=== PATIENT | male | born 1990 | race Caucasian/White ===

== ENCOUNTER → 2020-04-26 | Outpatient (CLI) | payer OTHER ==
[~2020-04-26] MED LIST: FENU500C PO; NAPR-514 PO; TEST200V3 IM; [UNRECOGNIZED DRUG - OTHER] PO
--- NOTE | 2020-04-26 11:37 | PDOC1 ---
INITIAL PAIN CONSULT DATE OF SERVICE: DOS: DATE: 04/26/20 TIME: 11:32 CHIEF COMPLAINT: Chief Complaint: Low back and right lower extremity pain HISTORY OF PRESENT ILLNESS: 29-year-old male presents history of pain for several years but worse over the past 1 month in the low back right lower extremity worse with standing walking changing positions patient ports bending is difficult he changes positions often at his place of employment patient reports the pain is doing slightly better with current physical therapy that he is doing has had 2 weeks so far but reports pain still significant in the low back rating the right lower extremity posterior gluteus posterior thigh posterior calf at times and it is much weaker than the left leg with significant fatigability. 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 Patient is currently undergoing physical therapy is also doing exercise on his own he is tried naproxen which decreased the pain only very minimally. Patient reports the pain wakes him sleep least 4 times a night side effects of bowel bladder control does affect his ability to walk and work significantly with his leg being weak on the right side. Patient have MRI scan of the lumbar spine showing disc desiccation at L4 and L5 with focal central left paracentral disc protrusion at each level worse at L5-S1 contacting the thecal sac and narrowing the left lateral recess with mild left foraminal stenosis. Patient reports no loss of motor function no bowel or bladder incontinence, but significant weakness right lower extremity with activity as noted. PAST MEDICAL HISTORY: PMH: No major medical conditions patient is been in relatively good health PREVIOUS SURGERIES: Past Surgical Hx: Scar tissue excision right ankle, wisdom teeth extraction, right ankle arthroscopy CURRENT MEDICATIONS: Current Meds: Active Scripts Medications Dose Route/Sig Max Daily Dose Days Date Category Fenugreek (Fenugreek Seed Extract) 500 Mg Capsule 750 Mg PO DAILY 04/26/20 Reported [tribulious] 750 Mg PO DAILY 04/26/20 Reported Testosterone Cypionate 200 Mg/1 Ml Vial 200 Mg IM WEEKLY 04/26/20 Reported Naproxen 500 Mg Tablet 1 Tab PO BID 30 04/26/20 Reported FAMILY HISTORY: Family Hx: Cancer, thyroid issues, degenerative joint disease SOCIAL HISTORY: Social Hx: Patient does not emili alcohol does not smoke not use any illegal illicit or recreational drugs is this with his spouse and works as a [employer] REVIEW OF SYSTEMS: ROS: Positive for those items mentioned in history of present illness, all systems are reviewed, otherwise negative, is complete full and well-documented on patient's chart PHYSICAL EXAM: VS: Blood pressure is 140/84 pulse 74 respiration 16 temperature is 90.0 F height is 5 foot 11 inches weight is 313 pounds PE: PHYSICAL EXAMINATION: GENERAL: The patient is awake, alert, oriented, appropriate, very pleasant demeanor HEENT: Shows normocephalic, atraumatic. Extraocular movements are intact and symmetrical. Oral cavity: Mucous membranes moist and pink. Dentition is intact. NECK: Shows anterior throat supple without palpable lymphadenopathy noted. Swallow reflex symmetrical. CHEST: Shows normal on inspection. Breath sounds are clear bilaterally, no rales rhonchi or wheezes. HEART: Shows S1, S2 clear. No murmurs auscultated. ABDOMEN: Soft, nontender, nondistended, obese. No palpable organomegaly is noted. No rebound or guarding demonstrated. BACK: Shows spine grossly in the midline. Normal-appearing cervical lordotic curvature. There is slightly increased thoracic kyphosis, some minor flattening of the lumbar lordotic curvature. Lumbar paraspinous muscles show symmetrical on inspection, on palpation shows some moderate tenderness diffusely throughout the upper, middle and lower distribution of the paraspinous muscles bilaterally and also into the lower thoracic paraspinous musculature, firm and tender, but without specific trigger points, without radiation of pain. The patient has go od rotational motion of the lumbar spine, both laterally as well as extension and flexion without significant difficulty. No tenderness over the spinous processes, sacrum or sacroiliac regions. EXTREMITIES: Lower extremities show deep tendon reflexes 2+ in the patellar and tendo calcaneus tendons. Motor exam is 4 on a scale of 5 with right dorsiflexion, extension, quadriceps and hamstring flexion and 5/5 on the left. Peripheral pulses are 1+ posterior tibial. No peripheral edema is noted bilaterally. Lower extremities are warm and dry to touch, equal in color and appearance. Straight leg raise noted to be positive on the right about 40 degrees, left side is negative. Gaenslen's and Marcos's maneuvers are negative as well. The patient is able to stand, stand on his toes without significant difficulty or loss of balance walks with a normal-appearing gait does not appear to favor the right or left lower extremity significantly not use any assistive device such as canes or walkers to ambulate. SKIN: Shows warm and dry, good turgor. No edema. No sores, rashes or bruising throughout. IMPRESSION: Impression: 29-year-old male with 1 month history increasing pain low back right lower extremity radicular fashion MRI scan lumbar spine as noted Plan: Options were discussed with the patient including continued physical therapies medical management and interventional techniques. He like to continue with physical therapy at this time we discussed possible interventional techniques including lumbar epidural steroid injection in the future if desired. We will try Medrol Dosepak as well patient was given instructions will side effects beware with the medication and after this is completed we will follow-up and potentially reschedule for lumbar epidural steroid injection. Patient continue with physical therapy exercises and continue physical therapy treatment s as scheduled as well. SONIYA PANCHAL MD Apr 26, 2020 11:37
== END | disposition home or self-care (01) ==
LOC: PNCL 09:19
PROVIDERS: ATTEND Anesthesiology
DX: M48.061 Spinal stenosis, lumbar region without neurogenic claudication (principal); M79.604 Pain in right leg; Z79.899 Other long term (current) drug therapy
CPT/HCPCS: G0463

== ENCOUNTER → 2020-05-04 | Outpatient (CLI) | payer OTHER ==
[~2020-05-04] MED LIST changes: +IOHEXOL 180 MG/ML 10 ML VIAL. ONE; +methylPREDNISolone ACETATE 40 MG/ML VIAL. ONE; +methylPREDNISolone ACETATE 80 MG/ML VIAL. ONE
--- NOTE | 2020-05-04 09:13 | PDOC ---
Progress Note - Pain Clinic Date of Service: DOS: DATE: 05/04/20 TIME: 09:10 Diagnosis: Dx: Lumbar radiculopathy with lumbar degenerative disc disease History or Present Illness: HPI: 29-year-old male returns follow-up status post initial evaluation and trial of Medrol Dosepak patient reports he was unable to try this as he did not get it filled. Patient ports pain is getting worse however in the low back and right lower extremity posterior gluteus posterior thigh posterior calf radiating becoming more sharp and aching patient reports is becoming more noticeable day-to-day interfering with his ability to walk doing household activities work activities patient reports the pain is a 9 on a scale of 10 is worse over the past week 7 on average 2 at its least and is a 3 today patient which is aching sharp tight shooting stabbing burning becoming more radiating more constant with walking standing patient ports wakes him from sleep about once every 6 hours especially sitting on his right side patient reports no new motor or sensory deficits no new bowel or bladder incontinence or other complaints. Physical Exam: VS: Blood pressure is 139/84 pulse 87 respirations 18 temperature is 98.6 F height is 5 foot 11 inches weight is 318 pounds PE: PHYSICAL EXAMINATION: GENERAL: The patient is awake, alert, oriented, appropriate, very pleasant demeanor HEENT: Shows normocephalic, atraumatic. Extraocular movements are intact and symmetrical. Oral cavity: Mucous membranes moist and pink. NECK: Shows anterior throat supple without palpable lymphadenopathy noted. Swallow reflex symmetrical. CHEST: Shows normal on inspection. Breath sounds are clear bilaterally, no rales rhonchi or wheezes. HEART: Shows S1, S2 clear. No murmurs auscultated. ABDOMEN: Soft, nontender, nondistended. No palpable organomegaly is noted. No rebound or guarding demonstrated. BACK: Shows spine grossly in the midline. Normal-appearing cervical lordotic curvature. There is slightly increased thoracic kyphosis, some minor flattening of the lumbar lordotic curvature. Lumbar paraspinous muscles show symmetrical on inspection, on palpation shows some moderate tenderness diffusely throughout the upper, middle and lower distribution of the paraspinous muscles bilaterally without specific trigger points, without radiation of pain. The patient has good rotational motion of the lumbar spine, both laterally as well as extension and flexion without significant difficulty. No tenderness over the spinous processes, sacrum or sacroiliac regions. EXTREMITIES: Lower extremities show deep tendon reflexes 2+ in the patellar and tendo calcaneus tendons. Motor exam is 4 on a scale of 5 with right dorsiflexion, extension, quadriceps and hamstring flexion and 5/5 on the left. Peripheral pulses are 1+ posterior tibial. No peripheral edema is noted bilaterally. Lower extremities are warm and dry to touch, equal in color and appearance. SKIN: Shows warm and dry, good turgor. No edema. No sores, rashes or bruising throughout. Procedure: Procedure: Options were discussed with the patient. Patient will chart reviews his current medication regimen updated current review of systems updated today as well. We will proceed with a lumbar epidural steroid injection today with fluoroscopic guidance. Risks were discussed including but not limited to: Bleeding, infection, possibility of epidural hematoma and subsequent neurological compromise, dural puncture, headaches, spinal cord and/or nerve damage, side eff ects of steroid medication, and poor results regarding pain control. Patient understands wished to proceed. Patient will return to clinic in possibly 2 weeks for follow-up was counseled as to return appointment activity level and side effects to be aware. Medication Injected: Med Injected: Procedure is lumbar epidural steroid injection under local anesthetic using sterile prep and drape at the L5-S1 level using C-arm fluoroscopic guidance in both AP and lateral views medications injected is 120 mg Depo-Medrol + 10 mL preservative-free normal saline and 2 mL contrast- condition at discharge is stable patient tolerated procedure well had no complications. Condition at Discharge: Condition at Discharge: Condition at discharge is stable patient tolerated procedure well had no complications. SONIYA PANCHAL MD May 04, 2020 09:12
== END ==
LOC: PNCL 08:07
PROVIDERS: ATTEND Anesthesiology
DX: M51.16 Intervertebral disc disorders with radiculopathy, lumbar region (principal); Z79.899 Other long term (current) drug therapy
CPT/HCPCS: 62323; J1030; J1040; Q9965